=== PATIENT | male | born 1955 | race Asian ===

== ENCOUNTER → 2019-05-01 | Emergency (ER) | payer OTHER ==
[~2019-05-01] VITALS: Ht 190.5 cm; Wt 108.9 kg
[~2019-05-01] MED LIST: AMLODIPINE BESYLATE PO; ASPIRIN 81 LOW81 MG PO; CARV3.12 PO; CHLORTHALID25 MG PO; CLOP75TA2 PO; FINA5TAB2 PO; HEPATITIS A VACCINE IM; IMODIUM A-1 MG/7.5 M PO; MAVYRET PO; MOBIC7.5 M1 PO; OMEPRAZOLE DR20 MG PO; PROAIR HFA108 MCG/AC INH; TAMS0.4C PO; TEMA15CA19 PO; ZOLOFT25 MG PO
[2019-05-01 21:22] VITALS: BP 118/88; TEMP 98.6
== END ==
LOC: ED 17:05
DX: F32.89 Other specified depressive episodes (principal); Z04.6 Encounter for general psychiatric examination, requested by authority
CPT/HCPCS: 93005; 99285

== ENCOUNTER 2020-04-07 10:21 | Outpatient (CLI) | payer OTHER ==
[~2020-04-07 10:21] MED LIST changes: +BUPR150T PO; +CLON0.5T36 PO; +CYPROHEPTADINE H4 MG PO; +DIVA125C PO; +DIVALPROEX500 MG PO; +MAGN400T4 PO; +POTA10CA3 PO; +SERT50TA PO
== END 2020-04-07 19:19 | disposition home or self-care (01) ==
LOC: RAD 10:21
DX: M85.89 Other specified disorders of bone density and structure, multiple sites (principal)